=== PATIENT | male | born 1970 | race African-American/Black ===

== ENCOUNTER 2016-06-01 04:45 | Emergency (ER) | payer OTHER ==
[~2016-06-01] VITALS: Ht 172.7 cm; Wt 99.8 kg
[~2016-06-01 04:45] MED LIST: ABILIFY10 MG ORAL; CYCLOBENZAPRINE10 MG ORAL; HYDROCODON-ACE1 EA15 ORAL; IBUPROFEN600 MG ORAL; IBUPROFEN600 MG PO; KLONOPIN1 MG ORAL; NORCO 10-325 T1 EACH PO; NORCO 5-325 TA1 EACH ORAL; NORCO 5-325 TA1 EACH PO; ROBAXIN-750750 MG PO; SOMA250 MG PO; SOMA350 MG PO
[2016-06-01] MEDS ORDERED: Ketorolac 60mg Inj IM ONE (05:15)
[2016-06-01 05:50] VITALS: BP 126/85
[2016-06-01] MEDS ORDERED: ACETAMINOPHEN500 M5 PO (05:56)
--- NOTE | 2016-06-01 20:17 | Emergency Room Report ---
History of Present Illness General Chief Complaint: Lower Extremity Injury Source: Patient Present Illness HPI Patient is a 46-year-old male who presented after increased lower extremity pain. The patient gradual onset of symptoms. Patient states prior history of injury to his lower extremity after fall.. Patient reported having increased pain and swelling. Pain is described as sharp in nature worse with ambulation. patient states he had recent x-rays which showed no evident fracture. Patient noted some increased swelling. Allergies: Coded Allergies: No Known Allergies (Unverified , 03/15/12) Patient History Past Medical History: see triage record Reviewed Nursing Documentation: PMH: Agreed, PSxH: Agreed Review of Systems All Other Systems: negative except mentioned in HPI Physical Exam Vital Signs Date Time Temp Pulse Resp B/P Pulse Ox O2 Delivery O2 Flow Rate FiO2 06/01/16 04:47 98.2 84 18 126/85 100 Room Air Sp02 EP Interpretation: reviewed, normal General Appearance: normal inspection, well appearing, no apparent distress, alert, GCS 15 Head: atraumatic ENT: normal ENT inspection, hearing grossly normal, normal voice Neck: normal inspection, full range of motion, supple, no bony tend Respiratory: normal inspection, lungs clear, normal breath sounds, no respiratory distress, no retraction, no wheezing Cardiovascular #1: regular rate, rhythm, no edema Gastrointestinal: normal inspection, normal bowel sounds, non tender, soft, no guarding, no hernia Genitourinary: no CVA tenderness Musculoskeletal: normal inspection, back normal, normal range of motion Neurologic: normal inspection, alert, oriented x3, responsive, community development coordinator III-XII nml as tested, speech normal Psychiatric: normal inspection, judgement/insight normal, mood/affect normal Skin: normal inspection, normal color, no rash Medical Decision Making Diagnostic Impression: Primary Impression: Sprain of right knee ER Course Patient presented for knee pain. Differential diagnosis included was not limited to popliteal aneurysm, arthritis, dislocation, ligamentous injury, septic joint among others. Patient's benign exam and does not appear to require any further imaging or laboratory testing at this time. patient's ligaments appear stable.Patient was given Toradol for pain. The patient is advised to follow up with primary care doctor in 1-2 days. Patient is advised to return if any worsening condition or if any changes in status that are concerning. Last Vital Signs Date Time Temp Pulse Resp B/P Pulse Ox O2 Delivery O2 Flow Rate FiO2 06/01/16 05:50 98.2 79 18 126/85 100 Room Air Status: improved Disposition: HOME, SELF-CARE Condition: Stable Scripts Acetaminophen (Acetaminophen) 500 Mg Tablet 500 MG PO Q4HR, #30 TAB Prov: Enio Hitchcock 06/01/16 Referrals: VANIA LEE,REFERRING (PCP) Patient Instructions: Knee Sprain Enio Hitchcock Jun 01, 2016 20:17
== END 2016-06-01 05:50 | disposition home or self-care (01) ==
LOC: EMR 05:01
DX: S83.91XA Sprain of unspecified site of right knee, initial encounter (principal); W18.30XA Fall on same level, unspecified, initial encounter; Y92.9 Unspecified place or not applicable; Y99.8 Other external cause status
CPT/HCPCS: 96372; 99283

== ENCOUNTER 2018-05-18 07:52 | Emergency (ER) | payer OTHER ==
[~2018-05-18] VITALS: Ht 177.8 cm; Wt 99.8 kg
[~2018-05-18 07:52] MED LIST changes: +ACETAMINOPHEN500 M5 PO; +AUGMENTIN 875-1 EAC1 ORAL; +NKM
[2018-05-18 08:10] VITALS: BP 148/80
--- NOTE | 2018-05-18 08:14 | NUR ---
ED Nurse Note: pt walked in to ED due to pain on left 2nd digit finger. dry and crack skin noted. no active bleeding. pt also c/o right foot swelling without any injury. pt ambulatory with steady gait. AAO x 4. respirations even and non-labored noted. skin warm to touch. will wait for the further order.
[2018-05-18] MEDS ORDERED: CEPHALEXIN500 MG ORAL (08:42)
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
[2018-05-18] MEDS ORDERED: Bacitracin Oint UD TOPIC ONE (08:45)
[2018-05-18] MEDS ORDERED: Cephalexin 500mg cap ORAL ONE (08:45)
[2018-05-18 09:01] VITALS: BP 138/78
--- NOTE | 2018-05-18 09:02 | NUR ---
Homeless Discharge: Patient is being discharged from medical care. Awake, alert and oriented x4. After care instructions, including referral to community resources were given. Patient verbalized understanding of After care instructions; at this time patient does not request medications, equipment or placement. Patient signed patient consent in the medical record for patient destination upon discharge. All medical devices such ID band were removed. Patient ambulated out with all personal belongings with steady gait.
== END 2018-05-18 09:03 | disposition home or self-care (01) ==
LOC: EMR 08:36
DX: L03.012 Cellulitis of left finger (principal); R60.0 Localized edema
CPT/HCPCS: 99282

== ENCOUNTER 2019-02-02 00:16 | Emergency (ER) | payer SELFPAY ==
[~2019-02-02] VITALS: Ht 180.3 cm; Wt 72.6 kg
[~2019-02-02 00:16] MED LIST changes: +CEPHALEXIN500 MG ORAL
[2019-02-02 00:25] VITALS: BP 126/80
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
--- NOTE | 2019-02-02 01:40 | NUR ---
ED Nurse Note: Pt spoke to police officers Alex ([id number]) and Yamilka ([id number])
[2019-02-02 02:30] VITALS: BP 128/84
--- NOTE | 2019-02-02 02:30 | NUR ---
ER DISCHARGE NOTE: Patient is cleared to be discharged per ERMD, pt is aox4, on room air, with stable vital signs. pt was given dc and prescription instructions, pt was able to verbalize understanding, pt id band removed without complications. pt is able to ambulate with steady gait. pt took all belongings. Pt is uncooperative and combative. Pt will take a taxi home.
== END 2019-02-02 02:30 | disposition home or self-care (01) ==
LOC: EDBD 00:16 → EMR 00:35 → MERGE 00:35 → EMR 02:30
DX: R41.82 Altered mental status, unspecified (principal); F19.10 Other psychoactive substance abuse, uncomplicated; E66.9 Obesity, unspecified; Z68.22 Body mass index [BMI] 22.0-22.9, adult
CPT/HCPCS: 99282